=== PATIENT | male | born 1930 | race Caucasian/White ===

== ENCOUNTER → 2017-08-18 | Day surgery (SDC) | payer OTHER ==
[~2017-08-18] VITALS: Ht 172.7 cm; Wt 69.4 kg
[~2017-08-18] MED LIST: ADVAIR 100-501 EACH INH; ASPIRIN EC325 M2 PO; LEVOTHYROXINE112 MCG PO; PRAVASTATIN SOD40 M2 PO; SIMBRINZA 1%-0.28 ML OS; TERAZOSIN HCL10 M1 PO; VITAMIN B-121000 MC3 PO; ZOFRAN ODT4 M1 SL
--- NOTE | 2017-08-20 11:21 | Operative Report ---
Operative/Inv Procedure Report Surgery Date: 08/18/17 Name of Procedure: Laparoscopic cholecystectomy Pre-Operative Diagnosis: Biliary colic Post-Operative Diagnosis: Same Estimated Blood Loss: none Surgeon/Wire Hanger: Rick QUINTERO,Michael Hagen PA-C Anesthesia: general endotracheal tube IV Fluids: 850 mL Implants: None Urine Output: 600 mL by straight cath preop Drains: None Specimens: Gallbladder with stones Microbiology: None Complications: None Condition: Excellent stable Operative Indication: Clement is an 87-year-old gentleman with recurring episodes of epigastric and regular quadrant abdominal pain. Ultrasound shows multiple gallstones with normal biliary tree. He presents for elective cholecystectomy Operative/Procedure Note Note: Patient is taken to the operating room placed on the operating table in supine position. Following an awake timeout he underwent uneventful induction of general endotracheal anesthesia. The abdomen was then clipped widely of hair. Upon doing so we noticed a fullness in the suprapubic area consistent with a distended bladder nearly to the umbilicus. The patient was then straight cathed for 600 mL clear urine. The fullness was resolved. We then prepped the abdomen with ChloraPrep and draped usual sterile fashion. Local anesthetic was infiltrated in the supraumbilical area where a curvilinear incision was made. The patient had received some IV Ancef prior to skin incision Venodyne boots were in place and pumping arms extended out to the side. The fascia was identified and opened in the supraumbilical position for short distance to expose preperitoneal fat and peritoneum. This was then opened sharply to gain entry safely into the peritoneal cavity. A finger sweep revealed there were no adhesions and Espinosa port 10 mm placed and pneumoperitoneum achieved. A 10 mm 0 colon in the right upper quadrant was dilated and securing the view so we placed the epigastric port first after infiltrating local anesthetic just to the right of the falciform using a 5 mm port. I was able to sweep the colon out of the right upper quadrant visualized liver edge and see the gallbladder. We then placed the 2 subcostal 5 mm ports after infiltrating local anesthetic. The gallbladder was then grasped by its apex and delivered up towards the diaphragm. There adhesions over the length of the gallbladder from the omentum and periduodenal tissue. These were taken down with both blunt dissection and some cautery. The triangle of Low was now clearly in view and one could see the common duct fairly well. The lymph node was plop prominent. I incised the peritoneum over the triangle just below the lymph node and carried that vision medially and laterally on the gallbladder then dissected into the triangle identifying the cystic duct laterally and the artery medially in typical fashion. There was a branch to the node was probably lymphatic but was sizable enough so that I clipped it 1 on the patient's side and used cautery on the lymph node. This helped open up the space between the artery and duct nicely and I circumferentially dissected the duct. It was clearly coming to thegallbladder and had a good critical view of safety. It was clipped 2 on the patient's eye one on the specimen side and divided and then the artery and similarly. The gallbladder was then dissected off the liver bed with the cautery nicely with no violation of the liver capsule or the gallbladder. The artery had branched and had a posterior meandering branch that initially was on the gallbladder but then became more associated with the capsular tissue so I divided this with clips once again leaving it on the liver side and then completed the dissection of the gallbladder off the liver bed. Prior to detaching the last irrigations between liver and gallbladder we inspected the liver bed clips there was no bleeding or bile leakage. Final attachments were taken down and the gallbladder patient in an extraction bag and removed at the umbilicus. The pneumoperitoneum was restored and we checked the liver bed and clips once again then irrigated briefly leveling the patient to aspirate all the fluid which was clear. Ports are removed under direct vision and there was no bleeding. The fascia was closed with 2 [id number] sutures of 0 Vicryl followed by interrupted 3-0 Vicryl sutures subcutaneous and 4-0 Monocryl running subcuticular skin closures. Steri-Strips 4 x 4's and OpSite were placed. Patient tolerated the procedure well was taken to the recovery room extubated in stable condition all sponge and needle counts Correct 2 at the completion of the case. Findings: Adhesions over length of gallbladder. Normal triangle of Calot anatomy. Discharge Disposition: PACU
== END ==
LOC: STS 02:21
DX: K80.10 Calculus of gallbladder with chronic cholecystitis without obstruction (principal); K66.0 Peritoneal adhesions (postprocedural) (postinfection); R10.13 Epigastric pain; J44.9 Chronic obstructive pulmonary disease, unspecified; I25.10 Atherosclerotic heart disease of native coronary artery without angina pectoris; I10 Essential (primary) hypertension
CPT/HCPCS: 88304; 88305; C9399; J0131; J0690; J2250; J3490